=== PATIENT | male | born 1975 | race Caucasian/White ===

== ENCOUNTER → 2023-01-26 11:36 | Outpatient (CLI) | payer MEDICAID, SELFPAY ==
--- NOTE | 2023-01-26 11:44 | XR_ITS ---
FINAL REPORT CLINICAL HISTORY: Foot pain/swelling following fall FINDINGS: LEFT FOOT: Three views of the left foot were obtained. There is no acute fracture or dislocation. The joint spaces are intact. There is no soft tissue abnormality. A plantar calcaneal spur is present. IMPRESSION: No acute bony abnormality. Reviewed, Interpreted and Dictated by Wood Nair III, MD Transcribed by Kassi Guy Authenticated and [facility]
== END ==
PROVIDERS: PCP Internal Medicine Adolescent Medicine; Visit Provider Internal Medicine
DX: M79.672 Pain in left foot (principal)
CPT/HCPCS: 73630

== ENCOUNTER 2024-12-19 10:54 | Emergency (ER) | payer SELFPAY ==
[2024-12-19] VITALS (8 sets, daily range): BP systolic 115–158; BP diastolic 72–101; PULSE 61–85; RESP 18; TEMP 36.4; O2SAT 95–99; BMI 36.9
--- NOTE | 2024-12-19 11:03 | ED_ITS ---
<Statement entered by Chang Burns MD - 12/19/24 15:50> I was consulted by the ARNAUD, and we discussed the complexity of the problems being addressed. I approved the treatment and management plan for this patient's care in the emergency department, thus performing a substantive portion of the medical decision making. Chang Burns MD Discharge Plan Disposition Patient Disposition: Home, Self-Care Condition: Good Prescriptions Prescriptions: New methocarbamol 750 mg tablet 750 mg PO Q6H PRN (Reason: muscle spasm) Qty: 20 0RF Referrals Follow up/Referrals: Isra Jay MD [Primary Care Provider, Internal Medicine] - See instructions Activity Restrictions/Add. Instructions Additional Instructions/Restrictions: As we discussed I recommend taking Tylenol alternating with Motrin for pain and swelling. I recommend taking 1000 mg of Tylenol alternating every 4 hours with 800 mg of Motrin. I recommend taking the Motrin with food. I sent in a muscle relaxer to help with muscle spasms. Recommend not driving within 8 hours of taking it. If you have any continued new or worsening signs or symptoms follow- up with your PCP return to the ER as needed. Clinical Impressions Clinical Impression: Blunt trauma of abdominal wall Qualifiers: Encounter type: initial encounter Qualified Code(s): S39.81XA - Other specified injuries of abdomen, initial encounter Stand Alone Forms Stand Alone Forms: Work/School Release Print Language Print Language: Estonian Discharge ED Provider: Chang Burns General Adult HPI General Chief complaint: Fall Stated complaint: WC Fell struck Ribs against Bar [employer] Time Seen by Provider: 12/19/24 11:03 History of Present Illness HPI narrative: Patient presents for evaluation after a fall at work. Patient was on a elevated platform with a metal railing around the platform. Patient stood up on the second railing slipped falling onto the top railing across his anterior epigastric area. He states that he got the wind knocked out of him and he felt nauseated for a moment but initially was able to pick himself up. However over the last 2 hours prior to arrival patient has had increasing thoracoabdominal pain which is worse when bending over. He has no position of complete relief but it is better when standing. He denies shortness of breath vomiting but has not attempted to eat or drink since the accident. Patient denies any other injury. He does state that it hurts to take a deep breath. Related Data Previous Rx's ?Medication ?Instructions ?Recorded methocarbamol 750 mg tablet 750 mg PO Q6H PRN muscle s pasm #20 12/19/24 tabs Allergies Allergy/AdvReac Type Severity Reaction Status Date / Time Penicillin Allergy Unknown Uncoded 01/26/23 10:56 [facility] Disclaimer: The information contained in this section may have been updated after the patient was seen, as this information can be updated by other users. Family History (Updated 01/26/23 @ 10:57 by Sary Khanna CMA) Mother Cancer Grandfather Cancer Social History (Updated 01/26/23 @ 11:00 by Sary Khanna CMA) Smoking Status: Never smoker alcohol intake: never current occupational status: employed Travel in the last 8 weeks?: None marital status: current occupation: Assembly line at [employer] Recent Travel: No Have you lived/traveled outside [place] in past 30 days?: No Contact w/someone who lives/traveled outside US past 30 days?: No Exposure to someone with infectious disease in past 14 days?: No Do you have a fever (greater than 100.4 F or 38 C)?: No Have you tested positive for COVID-19?: No Exposed to someone with COVID-19 in past 14 days?: No Do you have a sore throat?: No Do you have a cough?: No Do you have any weakness?: No Do you have any diarrhea?: No Are you experiencing any unusual bleeding?: No Do you have any muscle aches/pain?: No Do you have any abdominal pain?: No Are you experiencing loss of taste or smell?: No Other Medical History Have you received the Pneumonia Vaccine: No ROS Obtained: Yes Systems reviewed as appropriate & no additional complaints except as documented Physical Exam General General appearance: alert and in no apparent distress Respiratory Respiratory exam: Present normal lung sounds bilaterally Cardiovascular Cardiovascular exam: Present regular rate Neurological Exam Neurological exam: Present alert, oriented X3 and CN II-XII intact Medical Decision Making Medical Records Medical records reviewed: Yes I reviewed the patient's medical records. Screening: Per USPSTF and CDC recommendations, given the prevalence of disease in our region, it is our hospital?s policy to screen for HIV and viral Hepatitis for all patients aged 18 and over and those with ongoing risk factors. Gaurav Inquiry Pt receiving controlled substance: No Vital Signs: 12/19/24 11:00 12/19/24 11:03 12/19/24 11:04 Temperature Temperature Source Pulse Rate 72 85 Pulse Rate [Right Brachial] 76 Respiratory Rate 18 Blood Pressure 145/101 H 140/95 H Blood Pressure [Right Arm] 140/95 H Blood Pressure Mean 107 108 Blood Pressure Mean [Right Arm] 110 02 Sat by Pulse Oximetry 98 99 99 Oxygen Delivery Method Room Air 12/19/24 12:00 12/19/24 12:30 12/19/24 13:10 Temperature Temperature Source Pulse Rate 66 61 80 Pulse Rate [Right Brachial] Respiratory Rate 18 Blood Pressure 153/94 H 158/99 H 132/88 Blood Pressure [Right Arm] Blood Pressure Mean 105 115 102 Blood Pressure Mean [Right Arm] 02 Sat by Pulse Oximetry 99 95 99 Oxygen Delivery Method 12/19/24 13:30 12/19/24 14:11 Temperature 97.6 F Temperature Source Oral Pulse Rate 68 74 Pulse Rate [Right Brachial] Respiratory Rate 18 Blood Pressure 115/72 120/80 Blood Pressure [Right Arm] Blood Pressure Mean 86 Blood Pressure Mean [Right Arm] 02 Sat by Pulse Oximetry 98 Oxygen Delivery Method Room Air Lab Data Lab results reviewed: Yes I reviewed the patient's lab results. Lab Results 12/19/24 11:30: WBC 7.6, RBC 5.00, Hgb 14.9, Hct 45.2, MCV 90.4, MCH 29.8, MCHC 33.0, RDW 12.7, Plt Count 247, MPV 9.1, Neut % (Auto) 62.0, Lymph % (Auto) 25.0, Pettis % (Auto) 11.0 H, Eos % (Auto) 0.5, Baso % (Auto) 0.7, Neut # (Auto) 4.7, Lymph # (Auto) 1.9, Pettis # (Auto) 0.8, Eos # (Auto) 0.0, Baso # (Auto) 0.1, PT 10.8, INR 0.97, Sodium 139, Potassium 4.3, Chloride 99, Carbon Dioxide 30, Anion Gap 14.3, BUN 18, Creatinine 1.00, Estimated Creat Clear 150, Estimated GFR 79, Est GFR ( Amer) 96, Glucose 96, Calcium 9.9, Total Bilirubin 0.7, AST 36, ALT 33, Alkaline Phosphatase 73, Total Protein 8.6 H, Albumin 4.6, Globulin 4.0 H, Albumin/Globulin Ratio 1.2, Lipase 48 12/19/24 11:30 12/19/24 11:30 Orders (Tests/Meds): ED MEDICATIONS Discontinued Medications Generic Name Dose Route Start Last Admin Trade Name Patience PRN Reason Stop Dose Admin Iopamidol 75 ml 12/19/24 12:44 12/19/24 12:45 Iopamidol-370 (76%);100ml Bottle IV 12/19/24 12:45 75 ml ONCE ONE Administration Methocarbamol 500 mg 12/19/24 14:13 12/19/24 14:32 Methocarbamol 500mg Tablet PO 12/19/24 14:14 500 mg ONCE ONE Administration Sodium Chloride 50 ml 12/19/24 12:44 12/19/24 12:45 0.9 % Sodium Chloride 50 Ml Vial IV 12/19/24 12:45 50 ml ONCE ONE Administration Sodium Chloride 10 ml 12/19/24 12:44 12/19/24 12:45 Sodium Chloride 0.9% 10ml Syr (Rad Only) IV 12/19/24 12:45 10 ml ONCE ONE Administration ORDERS Category Date Time Status CT angio abd/pel - GI Bleed Stat Cat Scan 12/19/24 11:[address] chest w con Stat Cat Scan 12/19/24 11:09 Completed CBC w/Auto Diff [Complete Blood Count Auto Diff] Stat Lab 12/19/24 11:30 Completed CMP [Comprehensive Metabolic Panel] Stat Lab 12/19/24 11:30 Completed INR [Prothrombin Time INR] Stat Lab 12/19/24 11:30 Completed Lipase Stat Lab 12/19/24 11:30 Completed Medical Decision Narrative: In summary patient is a 49-year-old male who presents to the emergency department for evaluation of fall and blunt abdominal trauma. Patient is hemodynamically stable with a blood pressure 145/101 heart rate 72 with normal sinus rhythm on the bedside monitor breathing 18 times a minute satting at 98% on room air upon arrival, afebrile. Physical exam reveals a well-nourished well-developed 49-year-old gentleman who currently is in no acute distress. Breath sounds clear and equal bilaterally to the bases with adventitious sounds. Patient has exquisite tenderness across the anterior epigastrium/chest wall/upper abdomen but there is no rebound or guarding no rigidity. He has a small tattoo from striking the bar in the subxiphoid area. I see no ecchymosis or swelling currently however bowel sounds are normal abdomen is soft and the remainder of the lower abdomen is nontender without rebound or guarding or rigidity.. Differential diagnosis includes costochondral fracture versus pneumothorax versus pancreatic injury versus hollow viscus injury versus blunt abdominal trauma etc. Initial workup will be conducted with hematologic labs CT scan of the chest abdomen pelvis. Initial interventions include offered Tylenol and ibuprofen however patient is already taking Tylenol and deferred taking ibuprofen. Initial workup reviewed by me and his hematologic labs are nonactionable negative lipase and my informed interpretation of his imaging shows no acute intrathoracic evidence of trauma or injury and same for the CT scan of the abdomen. Upon repeat evaluation patient is tolerating oral intake and feels better after the meloxicam.. Given this patient is appropriate for discharge with symptomatic and supportive care including Tylenol ibuprofen and a prescription for Robaxin. If patient has any persistent new or worsening signs or symptoms to follow-up with PCP return to the ER as needed. Critical Care Critical Care Time Critical Care Time: No
--- NOTE | 2024-12-19 11:09 | CT_ITS ---
FINAL REPORT TECHNIQUE: Routine axial images were obtained from the lung apices to below the diaphragm following IV contrast administration. Individualized dose reduction techniques using automated exposure control or adjustment of the mA and/or kV according to the patient size were employed. CLINICAL HISTORY: Anterior thoracoabdominal blunt trauma FINDINGS: There are mild chronic changes at the lung bases. Subtle, patchy bibasilar airspace opacities are seen on image 52 of series 3 which may be due to pneumonia.. No pleural or pericardial effusion is seen. No adenopathy or mass lesion is present. There is no pneumothorax. No acute osseous abnormality is seen. IMPRESSION: Subtle patchy bibasilar airspace opacities which may be due to pneumonia. No evidence of traumatic injury.. Reviewed, Interpreted and Dictated by Howie Fitzpatrick MD Transcribed by Radha Fraser Authenticated and [facility]
--- NOTE | 2024-12-19 11:16 | CT_ITS ---
FINAL REPORT TECHNIQUE: Postcontrast axial imaging of the abdomen and pelvis was obtained. CLINICAL HISTORY: Blunt abdominal trauma FINDINGS: ABDOMEN AND PELVIS: Precontrast images demonstrate no evidence of nephrolithiasis. No adrenal masses are identified. Liver is fatty infiltrated. Gallbladder is present. The spleen and pancreas are unremarkable. Urinary bladder is unremarkable. There is no adenopathy or free fluid. Appendix is normal. No acute osseous abnormality is seen. CTA: The abdominal aorta is proper caliber. The SMA, celiac axis, and KALYAN are patent. There is no significant stenosis or calcification. The renal arteries are patent bilaterally. Iliac vessels and visualized superficial femoral artery are unremarkable. IMPRESSION: No evidence of solid organ or traumatic injury. Reviewed, Interpreted and Dictated by Howie Fitzpatrick MD Transcribed by Radha Fraser Authenticated and [facility]
[2024-12-19 11:41] LABS: Hematocrit 45.2 % (42.0-52.0); Hemoglobin 14.9 g/dL (14.1-18.0); Immature Granulocytes % 0.8 %; Mean Corpuscular HGB Conc 33.0 g/dL (31.8-35.4); Mean Corpuscular Hemoglobin 29.8 pg (27.0-31.2); Mean Corpuscular Volume 90.4 fl (80-94); Nucleated Red Blood Cells % 0 %; Platelet Count 247 K/mm3 (142-424); Red Blood Count 5.00 M/mm3 (4.60-6.20); Red Cell Distribution Width-SD 41.7 fL; White Blood Count 7.6 K/mm3 (4.8-10.8)
[2024-12-19 11:52] LABS: Alanine Aminotransferase 33 U/L (12-78); Albumin Level 4.6 g/dl (3.5-5.0); Albumin/Globulin Ratio 1.2 (1.1-1.8); Alkaline Phosphatase 73 U/L (38-126); Anion Gap 14.3 mEq/L (5-15); Aspartate Amino Transferase 36 U/L (17-59); Bilirubin,Total 0.7 mg/dl (0.2-1.3); Blood Urea Nitrogen 18 mg/dl (9-20); Calcium 9.9 mg/dl (8.4-10.2); Carbon Dioxide 30 mmol/L (22.0-30.0); Chloride 99 mmol/L (98-107); Creatinine Clearance Estimated 150 mL/min (50-200); Creatinine,Serum 1.00 mg/dl (0.66-1.25); Estimated Glomerular Filt Rate 79 ml/min (>60); GFR (African American) 96 ML/MIN (>60); Globulin 4.0 g/dL (1.3-3.2); Glucose 96 mg/dl (74-100); Lipase 48 U/L (23-300); Potassium 4.3 mmoL/L (3.5-5.1); Sodium 139 mmol/L (136-145); Total Protein,Serum 8.6 g/dl (6.3-8.2)
[2024-12-19] MEDS: IOPAMIDOL-370 (76%);100ML BOTTLE 75 ML IV (12:45)
[2024-12-19] MEDS: 0.9 % SODIUM CHLORIDE 50 ML VIAL IV (12:45)
[2024-12-19] MEDS: SODIUM CHLORIDE 0.9% 10ML SYR (RAD ONLY) 10 ML IV (12:45)
[2024-12-19 13:42] LABS: INR 0.97 (0.9-1.1); Prothrombin Time 10.8 seconds (10.1-12.5)
[2024-12-19] MEDS: METHOCARBAMOL 500MG TABLET 500 MG PO (14:32)
== END 2024-12-19 14:40 | disposition home or self-care (01) ==
PROVIDERS: Physician Assistant; Emergency Provider Emergency Medicine; PCP Internal Medicine Adolescent Medicine
DX: S39.81XA Other specified injuries of abdomen, initial encounter (principal); R10.13 Epigastric pain; W17.89XA Other fall from one level to another, initial encounter
CPT/HCPCS: 71260; 74174; 80053; 83690; 85025; 85610; 99285; Q9967

== ENCOUNTER 2024-12-28 11:02 | Outpatient (CLI) | payer OTHER, SELFPAY ==
--- NOTE | 2024-12-28 11:12 | XR_ITS ---
FINAL REPORT CLINICAL HISTORY: Left-sided rib pain COMPARISON: None FINDINGS: LEFT RIBS Three views demonstrate a mildly displaced fracture of the anterior left 7th and 8th ribs. There is no pneumothorax. There is no pleural fluid collection. IMPRESSION: Acute appearing left 7th and 8th rib fractures. Reviewed, Interpreted and Dictated by Laila Burns MD Transcribed by Lana Marinelli Authenticated and . [facility]
--- NOTE | 2024-12-28 11:12 | XR_ITS ---
FINAL REPORT CLINICAL HISTORY: RIB PAIN ON LEFT SIDE AND ACUTE COUGH COMPARISON: None FINDINGS: CHEST 2 VIEW No acute pulmonary density is evident. There is no evidence of effusion or other pleural disease. The mediastinum has a normal appearance. The cardiac silhouette is unremarkable. IMPRESSION: Unremarkable chest exam. Reviewed, Interpreted and Dictated by Laila Burns MD Transcribed by Lana Marinelli Authenticated and . [facility]
== END 2024-12-28 23:59 | disposition home or self-care (01) ==
LOC: RAD 11:07
PROVIDERS: PCP Internal Medicine Adolescent Medicine; Visit Provider Physician Assistant
DX: S22.42XA Multiple fractures of ribs, left side, initial encounter for closed fracture (principal)
CPT/HCPCS: 71046; 71100